=== PATIENT | female | born 1940 | race Caucasian/White ===

== ENCOUNTER 2023-02-16 09:15 | Outpatient (RCR) | payer MEDICARE, BC, SELFPAY | END 2023-06-16 23:59 | disposition home or self-care (01) | PROVIDERS: PCP Family Medicine; Visit Provider Family Medicine | DX: M54.50 Low back pain, unspecified (principal); G89.29 Other chronic pain; M25.69 Stiffness of other specified joint, not elsewhere classified; R26.2 Difficulty in walking, not elsewhere classified; Z51.89 Encounter for other specified aftercare | CPT/HCPCS: 97110; 97140; 97162 ==

== ENCOUNTER 2024-02-02 06:13 | Outpatient (CLI) | payer MEDICARE, BC, SELFPAY ==
--- NOTE | 2024-02-02 07:56 | W.ANESCHARGE ---
Anesthesia Charges Start Date/Time Anesthesia Start Date: 02/02/24 Anesthesia Start Time: 07:25 Stop Date/Time Anesthesia Stop Date: 02/02/24 Anesthesia Stop Time: 07:53
--- NOTE | 2024-02-02 09:34 | W.ANESCHARGE ---
Anesthesia Charges Start Date/Time Anesthesia Start Date: 02/02/24 Anesthesia Start Time: 07:25 Stop Date/Time Anesthesia Stop Date: 02/02/24 Anesthesia Stop Time: 07:53 Summary Extremes of Age - Over 70 or under 1: MDA
== END 2024-02-02 06:14 | disposition home or self-care (01) ==
LOC: OP CLINIC 06:15
PROVIDERS: PCP Family Medicine; Visit Provider Internal Medicine Gastroenterology
DX: Z12.11 Encounter for screening for malignant neoplasm of colon (principal); D12.2 Benign neoplasm of ascending colon; Z86.0101 Personal history of adenomatous and serrated colon polyps
CPT/HCPCS: 00811; 45380; 45385; 88305; 99100; J2704

== ENCOUNTER 2024-09-24 09:45 | Outpatient (RCR) | payer MEDICARE, BC, SELFPAY ==
--- NOTE | 2024-09-03 15:42 | PT.OPEX ---
PT [place] Outpatient Eval PT [facility] Outpatient Eval Start: 09/03/24 11:14 Freq: Status: Active Protocol: Document 09/03/24 11:14 PRETTY (Rec: 09/03/24 13:56 PRETTY [id number]) E-signed By Ciara Miller DPT Physical Therapy Outpatient Evaluation Insurance Information Recert Due Date 12/02/24 Insurance Name Medicare B Medical Diagnosis R hip bursitis Treating Diagnosis R hip pain, LBP, core/hip/glut weakness, limited tolerance for extended standing/walking Subjective Subjective Patient reports hx of LBP issues, scoliosis that impacts stress to her R hip. She reports R lateral hip pain for the last several months. States [facility] told her it was bursitis. She has increased pain with laying on R side. Reports limited tolerance for extended standing/walking for daily/household/yard activities. Patient likes to bake but reports needing to sit to stir secondary to LBP, R hip pain. She is using tylenol about 5 days a week. She reports interrupted sleep but that is also related to restless leg syndrome . She is using the heating pad to her LB and R hip, 2- 3x/week. Patient reports being active, busy with projects, yard work, mulching. She travels with her family. 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 She denies any falls. Amb without an AD. She is able to negotiate stairs using a railing, no issues. R hip pain rated 1- 5/10. Patient is hoping to get a home exercise program that she can continue with on her own. Date of Last 08/07/24 Physician Visit Current Work Status Retired Precautions Treatment heart condition, HTN, OA, stroke with loss of Precautions/ peripheral vision Contraindications Assessment Assessment/ Patient is an 84 year old female with L hip pain, LBP, Impression core/hip/glut weakness, limited tolerance for extended standing/walking. Pain range 1-5/10. Patient is using tylenol about 5 days a week. Heating pad feels good to LB, R hip - using about 2-3x/week. Patient with hx of scoliosis, LBP issues. Scoliosis noted with standing posture, hips/shoulders not level in upright standing. Patient with increase stress on R hip, leading to flare up of R hip bursitis. She has core/ hip/glut weakness. She is wanting to get a home exercise program set up that she can continue with on her own. Able to initiate some exercises this session. Issued HO for HEP. Patient tolerated well. Patient would benefit from skilled PT for pain/sx management, core/hip/glut strengthening, and establishment of HEP. Plan of Care Rehabilitation [facility] 1. Decrease R hip/LB pain to less than/equal to 3/10 Goals with daily activities and with the progression of PT activities over the next 4-6 weeks. 2. Improve R hip ROM over the next 6-8 weeks for improved functional movement with daily activities, standing, and gait without flare up of R hip pain. 3. Improve hip/glut/LE/core strength over the next 8- 10 weeks for return to transfers with ease, improved tolerance for standing /walking activities, and daily/household/yard projects without flare up of R hip pain. 4. Patient will be I with HEP within 10 weeks for progression toward above goals, ongoing self management of pain/sx, ongoing self improvements in R hip ROM/mobility/strength, and for return to daily/ household/yard activities and standing/walking without flare up of R hip pain. Coordination/ Referral Source Communication With Treatment Plan/ Manual Therapy,Therapeutic Exercises Direct Interventions Frequency/Duration 1x/week Patient Will Be Completion of LTG(s),Skills Plateau,Independent w/HEP, Discharged From Independently Progressing Therapy Evaluation Billing Untimed Code 25 Treatment Minutes Complexity Moderate Certification Information Initial 09/03/24 Certification Date Ending Certification 12/02/24 Date Provider Signature Yes Required Provider Signature POC & Medical Necessity Shows Agreement With Physician NPI Number Write NPI# Here Physician Comment/ : Change Physician Signature Please Sign/Date Here & Date Requested
== END 2025-01-22 23:59 | disposition home or self-care (01) ==
PROVIDERS: PCP Family Medicine; Visit Provider Orthopaedic Surgery
DX: M70.71 Other bursitis of hip, right hip (principal); Z51.89 Encounter for other specified aftercare
CPT/HCPCS: 97110; 97162